=== PATIENT | female | born 1980 | race Caucasian/White ===

== ENCOUNTER 2019-03-04 17:50 | Emergency (ER) | payer MEDICAID ==
[~2019-03-04] VITALS: Ht 182.9 cm; Wt 100.0 kg
[~2019-03-04 17:50] MED LIST: CHOL400T55 PO; DOCU-131 PO; IBUP-1222 PO; OXYC-302 PO; OXYC-306 PO; POTA99TA2 PO; PREN1TAB27 PO; PREN1TAB52 PO; RANI75TA12 PO; SILV20CR13 TP; medical marijuana INH
--- NOTE | 2019-03-04 18:14 | NUR ---
Pt resting on gurney with head at foot of bed and feet at head of bed. Pt rolling around stating, "I have been throwing up since 4 this morning and shooting out diarrhea." Pt notified stool sample may be needed. Pt states, "I think I have depleted everything from my system." Pt HR at 44, SPO2% at 99%, oral temp 97.2 F and BP is 116/67. Pt has step father at bedside. NADN. Pt stating, "I tried promethazine at home, but I couldn't keep it down." Call light within reach. Bed rail up for safety measures.
[2019-03-04 18:45] LABS: BASOPHILS % (AUTO) 0 % (0-1); EOSINOPHILS # (AUTO) 0.01 x10^3/uL (0-0.4); EOSINOPHILS % (AUTO) 0 % (1-7); LYMPHOCYTES # (AUTO) 0.53 x10^3/uL (1-3.4); LYMPHOCYTES % (AUTO) 5 % (22-44); MD NO; MEAN CORPUSCULAR HEMOGLOBIN 30.1 pg (27.0-34.8); MEAN CORPUSCULAR HGB CONC 34.2 g/dL (32.4-35.8); MEAN CORPUSCULAR VOLUME 88.1 fL (80-100); MEAN PLATELET VOLUME 8.7 fL (7.4-10.4); MONOCYTES # (AUTO) 0.14 x10^3/uL (0.2-0.8); MONOCYTES % (AUTO) 1 % (2-9); NEUTROPHILS # (AUTO) 10.55 x10^3/uL (1.8-6.8); NEUTROPHILS % (AUTO) 94 % (42-75); PLATELET COUNT 287 x10^3/uL (130-400); RED BLOOD COUNT 4.63 x10^6/uL (3.82-5.3); RED CELL DISTRIBUTION WIDTH 13.2 % (9.6-15.2)
[2019-03-04 18:58] LABS: ALANINE AMINOTRANSFERASE 20 U/L (12-78); ALBUMIN 3.9 g/dL (3.4-5.0); ANION GAP 9 mmol/L (5-15); CALCIUM 9.1 mg/dL (8.5-10.1); CHLORIDE 110 mmol/L (98-107); CREATININE 0.78 mg/dL (0.55-1.02)
[2019-03-04] MEDS ORDERED: ONDANSETRON 2MG/ML, 2ML IVPush ONE (19:00)
[2019-03-04] MEDS ORDERED: MORPHINE SULFATE 4 MG/ML, 1ML IVPush PRN (19:00)
[2019-03-04 19:02] LABS: ALKALINE PHOSPHATASE 87 U/L (45-117); BILIRUBIN,TOTAL 0.8 mg/dL (0.2-1.0); TOTAL PROTEIN 7.5 g/dL (6.4-8.2)
--- NOTE | 2019-03-04 19:04 | NUR ---
Provided bedside report to ALEJANDRO Landaverde. All questions answered. ALEJANDRO Landaverde to assume care of pt.
[2019-03-04] MEDS ORDERED: MORPHINE SULFATE 4 MG/ML, 1ML ONE (19:14)
[2019-03-04] MEDS ORDERED: ONDANSETRON 2MG/ML, 2ML ONE (19:14)
--- NOTE | 2019-03-04 19:24 | NUR ---
REPORT FROM EMI ALLEN. PIV PLACED AND PT MEDICATED FOR NAUSEA AND PAIN. US AT BEDSIDE. CALL LIGHT IN REACH
[2019-03-04] MEDS ORDERED: OMNIPAQUE 350 MG/ML, 100ML BOTTLE ONE (20:11)
--- NOTE | 2019-03-04 20:13 | NUR ---
PT BACK FROM CT AND SLEEPING WITH NO NEEDS AND NAD. PT PLACED ON 2 L O2 BECAUSE AHE DESATTED WITH MORPHINE. CALL LIGHT IN REACH
[2019-03-04 20:37] VITALS: BP 136/78
--- NOTE | 2019-03-04 20:38 | NUR ---
UA WALKED TO LAB. PT GIVEN WATER. OK PER . CALL LIGHT IN REACH
--- NOTE | 2019-03-04 20:55 | NUR ---
report from jose david garcía. pt resting in room. call light in reach.
[2019-03-04 20:59] LABS: MICROSCOPIC INDICATED
[2019-03-04 21:01] LABS: CULTURE INDICATED? NO
[2019-03-04 21:09] LABS: AMPHETAMINE SCREEN, URINE Negative (Negative); BARBITURATE SCREEN, URINE Negative (Negative); BENZODIAZEPINE SCREEN, URINE Negative (Negative); CANNABINOID SCREEN, URINE Positive (Negative); COCAINE SCREEN, URINE Negative (Negative); METHADONE SCREEN, URINE Negative (Negative); OPIATE SCREEN, URINE Negative (Negative)
[2019-03-04] MEDS ORDERED: METOCLOPRAMIDE 5 MG/ML, 2ML ONE (21:26)
[2019-03-04] MEDS ORDERED: METOCLOPRAMIDE 5 MG/ML, 2ML IVPush ONE (21:30)
== END 2019-03-04 21:56 | disposition home or self-care (01) ==
LOC: ED 21:42
DX: A09 Infectious gastroenteritis and colitis, unspecified (principal); M54.2 Cervicalgia; G89.29 Other chronic pain; F41.1 Generalized anxiety disorder; Z87.891 Personal history of nicotine dependence
CPT/HCPCS: 36415; 74177; 76700; 80053; 80307; 81001; 83690; 84703; 85025; 96374; 96375; 99284; J2405; J2765; Q9967